=== PATIENT | female | born 1980 | race Caucasian/White ===

== ENCOUNTER → 2017-12-28 | Outpatient (CLI) | payer OTHER ==
--- NOTE | 2017-12-28 16:47 | WOMENS IMAGING REPORT ---
EXAM DESCRIPTION: BILAT DIAGNOSTIC MAMMO W/CAD; U/S BREAST UNILATERAL, COMPL COMPLETED DATE/TIME: 12/28/2017 10:44 am; 12/28/2017 12:28 pm REASON FOR STUDY: UNSPECIFIED LUMP IN UNSPECIFIED BREAST; RT BREAST PALP; N63.0 N63.0 UNSPECIFIED L UMP IN UNSPECIFIED BREAST COMPARISON: Mammography 03/18/2016, 02/14/2015 Breast ultrasounds 02/14/2015, 02/18/2015, 03/28/2015 TECHNIQUE: Standard craniocaudal and mediolateral oblique views of each breast recorded using digita l acquisition. Additional right whole breast 90 mediolateral view. Additional cone compression right view in the CC and MLO orientations Additional right breast ultrasound LIMITATIONS: None. FINDINGS: RIGHT BREAST MASSES: There are multiple well-circumscribed low-density mammographic masses in the right breast med ially and laterally. The largest of these is in the upper inner quadrant correlating with palpable a bnormality, measuring 3.6 cm in diameter. This was subsequently shown to represent a simple cyst at ultrasound. Patient also has a palpable abnormality right breast 9 o'clock position which correlates with a 2 cm mammographic nodule. This was subsequently shown to represent a simple cyst at ultrasou nd. CALCIFICATIONS: No new or suspicious calcifications. ARCHITECTURAL DISTORTION: None. DEVELOPING DENSITY: None. ASYMMETRY: None noted. OTHER: No other significant findings. LEFT BREAST MASSES: No suspicious masses. CALCIFICATIONS: No new or suspicious calcifications. ARCHITECTURAL DISTORTION: None. DEVELOPING DENSITY: None. ASYMMETRY: None noted. OTHER: No other significant finding. Read with the assistance of CAD: .[facility] - R2 Cenova Version 1.3 .[facility] - R2 Cenova Version 1.3 .[facility] - R2 Cenova Version 2.4 .[facility] [place] - R2 Cenova Version 2.4 .[facility] - R2 Log[employer] Team Leader Version 9.2 Right breast ultrasound: There are multiple right breast cysts. The largest of these is in the upper inner quadrant at the 1 to 2 o'clock position measuring about 3.6 cm in diameter. This correlates with the patient's palpabl e abnormality. There is a 2 cm cyst at the right breast 9 o'clock position which correlates with a palpable abnormal ity. Multiple other simple cysts are found throughout the remainder of the right breast, less than 3 cm in size. IMPRESSION: No mammographic or sonographic evidence for malignancy right breast. No mammographic evidence for malignancy left breast. BREAST DENSITY: c. The breasts are heterogeneously dense, which may obscure small masses. BIRAD: 2 Benign findings. RECOMMENDATION: RECOMMENDED FOLLOW UP: Clinical followup for right breast cysts. These are painful, ultrasound-guided cyst aspiration could be performed. Otherwise, consider beginning bilateral scree fany mammography/ tomosynthesis at age 40. SPECIFIC INTERVENTION/IMAGING/CONSULTATION RECOMMENDED:No additional intervention/ imaging/consultati on needed at this time. COMMUNICATION:Patient notified by letter COMMENT: The patient has been notified of the results by letter per SA requirements. Additional no tification policies are in place for contacting patient with suspicious or incomplete findings. Quality ID #225: The [employer] recommends an annual screening mammogram for women aged 40 years or over. This facility utilizes a reminder system to ensure that all patients receive reminder letters, and/or direct phone calls for appointments. This includes reminders for routine scr eening mammograms, diagnostic mammograms, or other Breast Imaging Interventions when appropriate. Th is patient will be placed in the appropriate reminder system. The [employer] (ACR) has developed recommendations for screening MRI of the breast s in certain patient populations, to be used in conjunction with mammography. Breast MRI surveillanc e may be appropriate for women with more than 20% lifetime risk of developing breast cancer as deter mined by genetic testing, significant family history of the disease, or history of mantle radiation f or Hodgkins Disease. ACR Practice Guidelines 2008. TECHNICAL DOCUMENTATION: FINDING NUMBER: (1) ASSESSMENT: (1) JOB ID: [id number] [employer]- All Rights Reserved Reading location - IP/workstation name: [facility]
--- NOTE | 2017-12-28 16:47 | WOMENS IMAGING REPORT ---
EXAM DESCRIPTION: BILAT DIAGNOSTIC MAMMO W/CAD; U/S BREAST UNILATERAL, COMPL COMPLETED DATE/TIME: 12/28/2017 10:44 am; 12/28/2017 12:28 pm REASON FOR STUDY: UNSPECIFIED LUMP IN UNSPECIFIED BREAST; RT BREAST PALP; N63.0 N63.0 UNSPECIFIED L UMP IN UNSPECIFIED BREAST COMPARISON: Mammography 03/18/2016, 02/14/2015 Breast ultrasounds 02/14/2015, 02/18/2015, 03/28/2015 TECHNIQUE: Standard craniocaudal and mediolateral oblique views of each breast recorded using digita l acquisition. Additional right whole breast 90 mediolateral view. Additional cone compression right view in the CC and MLO orientations Additional right breast ultrasound LIMITATIONS: None. FINDINGS: RIGHT BREAST MASSES: There are multiple well-circumscribed low-density mammographic masses in the right breast med ially and laterally. The largest of these is in the upper inner quadrant correlating with palpable a bnormality, measuring 3.6 cm in diameter. This was subsequently shown to represent a simple cyst at ultrasound. Patient also has a palpable abnormality right breast 9 o'clock position which correlates with a 2 cm mammographic nodule. This was subsequently shown to represent a simple cyst at ultrasou nd. CALCIFICATIONS: No new or suspicious calcifications. ARCHITECTURAL DISTORTION: None. DEVELOPING DENSITY: None. ASYMMETRY: None noted. OTHER: No other significant findings. LEFT BREAST MASSES: No suspicious masses. CALCIFICATIONS: No new or suspicious calcifications. ARCHITECTURAL DISTORTION: None. DEVELOPING DENSITY: None. ASYMMETRY: None noted. OTHER: No other significant finding. Read with the assistance of CAD: .[facility] - R2 Cenova Version 1.3 .[facility] Imaging - R2 Cenova Version 1.3 .[facility] - R2 Cenova Version 2.4 .[facility] [place] - R2 Cenova Version 2.4 .[facility] - R2 Banquet Pilot Version 9.2 Right breast ultrasound: There are multiple right breast cysts. The largest of these is in the upper inner quadrant at the 1 to 2 o'clock position measuring about 3.6 cm in diameter. This correlates with the patient's palpabl e abnormality. There is a 2 cm cyst at the right breast 9 o'clock position which correlates with a palpable abnormal ity. Multiple other simple cysts are found throughout the remainder of the right breast, less than 3 cm in size. IMPRESSION: No mammographic or sonographic evidence for malignancy right breast. No mammographic evidence for malignancy left breast. BREAST DENSITY: c. The breasts are heterogeneously dense, which may obscure small masses. BIRAD: 2 Benign findings. RECOMMENDATION: RECOMMENDED FOLLOW UP: Clinical followup for right breast cysts. These are painful, ultrasound-guided cyst aspiration could be performed. Otherwise, consider beginning bilateral scree fany mammography/ tomosynthesis at age 40. SPECIFIC INTERVENTION/IMAGING/CONSULTATION RECOMMENDED:No additional intervention/ imaging/consultati on needed at this time. COMMUNICATION:Patient notified by letter COMMENT: The patient has been notified of the results by letter per SA requirements. Additional no tification policies are in place for contacting patient with suspicious or incomplete findings. Quality ID #225: The [employer] recommends an annual screening mammogram for women aged 40 years or over. This facility utilizes a reminder system to ensure that all patients receive reminder letters, and/or direct phone calls for appointments. This includes reminders for routine scr eening mammograms, diagnostic mammograms, or other Breast Imaging Interventions when appropriate. Th is patient will be placed in the appropriate reminder system. The [employer] (ACR) has developed recommendations for screening MRI of the breast s in certain patient populations, to be used in conjunction with mammography. Breast MRI surveillanc e may be appropriate for women with more than 20% lifetime risk of developing breast cancer as deter mined by genetic testing, significant family history of the disease, or history of mantle radiation f or Hodgkins Disease. ACR Practice Guidelines 2008. TECHNICAL DOCUMENTATION: FINDING NUMBER: (1) ASSESSMENT: (1) JOB ID: [id number] [employer]- All Rights Reserved Reading location - IP/workstation name: [facility]
== END ==
LOC: WI 10:14
PROVIDERS: ATTEND Physician Assistant
DX: N63.12 Unspecified lump in the right breast, upper inner quadrant (principal)
CPT/HCPCS: 76641; 77066